=== PATIENT | male | born 1965 | race Caucasian/White ===

== ENCOUNTER → 2017-10-20 | Outpatient (CLI) | payer BC ==
--- NOTE | 2017-10-20 13:18 | Diagnostic Imaging Report ---
Pain radiating down right leg. Three views were obtained. Findings: The lamina of the lumbar spine is normal. Vertebral body heights are well maintained. There is no spondylolysis or spondylolisthesis. There is loss of disc height at L4-5 and L5-S1. There is some prominent osteophytes anteriorly at multiple levels. Impression: Mild diffuse lumbar spondylosis and lower lumbar degenerative disc disease as described. Dictated by: Dictated on workstation # [id number]
== END ==
LOC: RAD 12:46
PROVIDERS: ATTEND Chiropractor
DX: M51.17 Intervertebral disc disorders with radiculopathy, lumbosacral region (principal); M47.26 Other spondylosis with radiculopathy, lumbar region
CPT/HCPCS: 72100

== ENCOUNTER → 2020-07-18 | Outpatient (CLI) | payer BC ==
--- NOTE | 2020-07-18 10:42 | Diagnostic Imaging Report ---
INDICATION: Abdominal pain TECHNIQUE: Multiple grayscale sonographic images were obtained of the right upper quadrant of the abdomen. CORRELATION STUDY: None FINDINGS: LIVER: There is uniform echotexture within the visualized portions of the liver. There is normal, hepatopedal direction of flow within the main portal vein. Liver is enlarged at 20 cm. GALLBLADDER: No shadowing gallstones. No significant gallbladder wall thickening. Mildly prominent gallbladder fold is present. COMMON BILE DUCT: Nondilated at 0.5 cm. PANCREAS: Largely obscured. AORTA/IVC: Not well visualized. RIGHT KIDNEY: 12.3 x 7.1 x 6.7 cm. No hydronephrosis. OTHER: None. IMPRESSION: 1. Negative for gallstones or bile duct dilatation. 2. Hepatomegaly. Dictated by: Dictated on workstation # [id number]
== END ==
LOC: RAD 08:30
PROVIDERS: ATTEND Internal Medicine
DX: R10.13 Epigastric pain (principal); R16.0 Hepatomegaly, not elsewhere classified
CPT/HCPCS: 76705

== ENCOUNTER 2022-07-01 05:35 | Outpatient (CLI) | payer BC ==
[~2022-07-01] VITALS: Ht 172.7 cm; Wt 115.4 kg
[2022-07-03] MEDS ORDERED: METF500S7 PO (08:55)
[2022-07-03] MEDS ORDERED: LOSA100T57 PO (08:55)
[2022-07-03] MEDS ORDERED: ATOR40TA70 PO (08:55)
[2022-07-03] MEDS ORDERED: SEMA2PEN SQ (08:55)
== END 2022-07-03 09:00 | disposition home or self-care (01) ==
LOC: PREOP 05:35
PROVIDERS: ATTEND Specialist
DX: Z01.818 Encounter for other preprocedural examination (principal)

== ENCOUNTER 2022-07-05 07:03 | Day surgery (SDC) | payer BC ==
[~2022-07-05] VITALS: Ht 175.3 cm; Wt 115.4 kg
[~2022-07-05 07:03] MED LIST: ATOR40TA70 PO; LOSA100T57 PO; METF500S7 PO; SEMA2PEN SQ
[2022-07-05] MEDS: TETRACAINE 0.5% OPHTH SOLN 4 ML BTL (SINGLE DOSE ONLY) OU PRN ×4 (07:29→07:45)
[2022-07-05] MEDS ORDERED: TIMOLOL 0.5% (CATARACTS) 0.3 ML BTL OU PRN (07:30)
[2022-07-05] MEDS ORDERED: MOXIFLOXACIN OPHTH SOLN 5 MG/ML 0.3 ML SYRINGE OP ONE (07:30)
[2022-07-05] MEDS ORDERED: POVIDONE (BETADINE) OPHTH SOLN 5% 30 ML OP ONE (07:30)
[2022-07-05] MEDS: TROPICAMIDE 1% OPH SOLN (MYDRIACYL) 15 ML BTL OP SCH ×3 (07:33→07:45)
[2022-07-05] MEDS: PHENYLEPHRINE 10% OPHTH (NEO-SYN) 5 ML BTL OU SCH ×3 (07:38→07:45)
[2022-07-05 07:40] VITALS: BP 153/90
[2022-07-05] MEDS ORDERED: MIDAZOLAM 2 MG/2 ML (VERSED) VIAL ONE (07:58)
--- NOTE | 2022-07-05 08:01 | Ophthalmologist Pre-Op Note ---
Pre-Operative Progress Note H&P Reviewed The H&P was reviewed, patient examined and no changes noted. Date H&P Reviewed: Jul 05, 2022 Time H&P Reviewed: 08:01 Pre-Op Dx Cataract, Left Eye CITLALI GARCIA MD Jul 05, 2022 08:01
--- NOTE | 2022-07-05 08:23 | Ophthalmology Operative Report ---
Cataract removal/placement IOL PREOPERATIVE DIAGNOSIS: Cataract Left Eye POSTOPERATIVE DIAGNOSIS: Cataract Left Eye PROCEDURE: Cataract removal and placement of posterior chamber implant, left eye SURGEON: Cuate Garcia ANESTHESIA: Topical with sedation COMPLICATIONS: None ESTIMATED BLOOD LOSS: Minimal DESCRIPTION OF PROCEDURE: After proper informed consent was obtained, the patient, a 56 male, was taken to the Operating Room and the left eye was anesthetized with tetracaine. The left eye was then prepped and draped in the usual manner. A wire lid speculum was placed. A paracentesis was made at the left hand position. Preservative free lidocaine was injected into the anterior chamber followed by viscoelastic. A clear corneal incision was made in the temporal position. A capsulorrhexis was preformed and the central nuclear and cortical material were removed. The posterior capsule was polished and an Jamil 14.5 AU00T0 was placed into the capsular bag. The residual viscoelastic was aspirated and balanced saline solution was injected into the anterior chamber. Moxifloxacin was injected into the anterior chamber. The wound was checked and found to be water tight. The patient tolerated the procedure well without complications. CUATE GARCIA MD Jul 05, 2022 08:23
[2022-07-05 08:27] VITALS: BP 160/90
[2022-07-05] MEDS ORDERED: acetaZOLAMIDE ER 500 MG CAP (DIAMOX SEQUELS) PO ONE (10:00)
--- NOTE | 2022-07-05 11:48 | Anesthesia-General Post-Op ---
MAC Patient Condition Mental Status/LOC: Same as Preop Cardiovascular: Satisfactory Nausea/Vomiting: Absent Respiratory: Satisfactory Pain: Controlled Complications: Absent Post Op Complications Complications None Follow Up Care/Instructions Patient Instructions None needed. Anesthesiology Discharge Order Discharge Order Patient is doing well, no complaints, stable vital signs, no apparent adverse anesthesia problems. No complications reported per nursing. RADHA SUN CRNA Jul 05, 2022 11:48
== END 2022-07-05 08:31 ==
LOC: SDC 07:03
PROVIDERS: ATTEND Specialist
DX: H26.9 Unspecified cataract (principal); E66.9 Obesity, unspecified; Z68.37 Body mass index [BMI] 37.0-37.9, adult
CPT/HCPCS: 66984; 82947; V2632

== ENCOUNTER 2022-07-15 05:37 | Outpatient (CLI) | payer BC | END 2022-07-15 13:09 | disposition home or self-care (01) | LOC: PREOP 05:37 | PROVIDERS: ATTEND Specialist | DX: Z01.818 Encounter for other preprocedural examination (principal) ==

== ENCOUNTER 2022-07-19 07:30 | Day surgery (SDC) | payer BC ==
[~2022-07-19] VITALS: Ht 172.7 cm; Wt 115.4 kg
[2022-07-19] MEDS ORDERED: MOXIFLOXACIN OPHTH SOLN 5 MG/ML 0.3 ML SYRINGE OP ONE (07:45)
[2022-07-19] MEDS ORDERED: TIMOLOL 0.5% (CATARACTS) 0.3 ML BTL OU PRN (07:45)
[2022-07-19] MEDS ORDERED: POVIDONE (BETADINE) OPHTH SOLN 5% 30 ML OP ONE (07:45)
[2022-07-19] MEDS: TETRACAINE 0.5% OPHTH SOLN 4 ML BTL (SINGLE DOSE ONLY) OU PRN ×4 (07:48→08:08)
[2022-07-19 07:50] VITALS: BP 158/91
[2022-07-19] MEDS: TROPICAMIDE 1% OPH SOLN (MYDRIACYL) 15 ML BTL OP SCH ×3 (07:55→08:08)
[2022-07-19] MEDS: PHENYLEPHRINE 10% OPHTH (NEO-SYN) 5 ML BTL OU SCH ×3 (07:55→08:08)
[2022-07-19] MEDS ORDERED: MIDAZOLAM 2 MG/2 ML (VERSED) VIAL ONE (07:58)
--- NOTE | 2022-07-19 08:34 | Ophthalmologist Pre-Op Note ---
Pre-Operative Progress Note H&P Reviewed The H&P was reviewed, patient examined and no changes noted. Date H&P Reviewed: Jul 19, 2022 Time H&P Reviewed: 08:34 Pre-Op Dx Cataract, Right Eye CITLALI GARCIA MD Jul 19, 2022 08:34
--- NOTE | 2022-07-19 08:57 | Ophthalmology Operative Report ---
Cataract removal/placement IOL PREOPERATIVE DIAGNOSIS: Cataract Left Eye POSTOPERATIVE DIAGNOSIS: Cataract Left Eye PROCEDURE: Cataract removal and placement of posterior chamber implant, left eye SURGEON: Cuate Garcia ANESTHESIA: Topical with sedation COMPLICATIONS: None ESTIMATED BLOOD LOSS: Minimal DESCRIPTION OF PROCEDURE: After proper informed consent was obtained, the patient, a 56 male, was taken to the Operating Room and the left eye was anesthetized with tetracaine. The left eye was then prepped and draped in the usual manner. A wire lid speculum was placed. A paracentesis was made at the left hand position. Preservative free lidocaine was injected into the anterior chamber followed by viscoelastic. A clear corneal incision was made in the temporal position. A capsulorrhexis was preformed and the central nuclear and cortical material were removed. The posterior capsule was polished and an Jamil 14.0 AU00T0 was placed into the capsular bag. The residual viscoelastic was aspirated and balanced saline solution was injected into the anterior chamber. Moxifloxacin was injected into the anterior chamber. The wound was checked and found to be water tight. The patient tolerated the procedure well without complications. CUATE GARCIA MD Jul 19, 2022 08:57
[2022-07-19 09:03] VITALS: BP 151/90
[2022-07-19] MEDS ORDERED: acetaZOLAMIDE ER 500 MG CAP (DIAMOX SEQUELS) PO ONE (10:30)
--- NOTE | 2022-07-19 12:04 | Anesthesia-General Post-Op ---
MAC Patient Condition Mental Status/LOC: Same as Preop Cardiovascular: Satisfactory Nausea/Vomiting: Absent Respiratory: Satisfactory Pain: Controlled Complications: Absent Post Op Complications Complications None Follow Up Care/Instructions Patient Instructions None needed. Anesthesiology Discharge Order Discharge Order Patient was doing well this morning after the procedure with no complaints, stable vital signs, no apparent adverse anesthesia problems. No complications reported per nursing. DALTON MIRELES DO Jul 19, 2022 12:03
== END 2022-07-19 09:05 | disposition home or self-care (01) ==
LOC: SDC 07:30
PROVIDERS: ATTEND Specialist
DX: E11.36 Type 2 diabetes mellitus with diabetic cataract (principal); H25.9 Unspecified age-related cataract; E66.9 Obesity, unspecified; Z79.84 Long term (current) use of oral hypoglycemic drugs; Z68.38 Body mass index [BMI] 38.0-38.9, adult
CPT/HCPCS: 66984; 82947; V2632